=== PATIENT | female | born 1955 | race Caucasian/White ===

== ENCOUNTER → 2018-03-09 | Outpatient (CLI) | payer BC | LOC: MC.RAD 08:58 | DX: Z12.31 Encounter for screening mammogram for malignant neoplasm of breast (principal) ==

== ENCOUNTER → 2018-09-27 | Outpatient (CLI) | payer BC | LOC: COL.RAD 10:40 | DX: K76.89 Other specified diseases of liver (principal); N28.9 Disorder of kidney and ureter, unspecified; R19.09 Other intra-abdominal and pelvic swelling, mass and lump | CPT/HCPCS: Q9967 ==

== ENCOUNTER → 2019-04-03 | Outpatient (CLI) | payer BC | LOC: COL.RAD 04-02 08:00 | DX: K76.89 Other specified diseases of liver (principal); N28.1 Cyst of kidney, acquired; N83.8 Other noninflammatory disorders of ovary, fallopian tube and broad ligament | CPT/HCPCS: Q9967 ==

== ENCOUNTER → 2019-05-06 | Outpatient (CLI) | payer BC | LOC: MC.RAD 10:28 | DX: Z12.31 Encounter for screening mammogram for malignant neoplasm of breast (principal) ==

== ENCOUNTER → 2020-05-14 | Outpatient (CLI) | payer BC | LOC: MC.RAD 09:21 | DX: Z12.31 Encounter for screening mammogram for malignant neoplasm of breast (principal) ==

== ENCOUNTER → 2021-07-15 | Outpatient (CLI) | payer BC | LOC: MC.RAD 09:00 | DX: Z12.31 Encounter for screening mammogram for malignant neoplasm of breast (principal) ==